=== PATIENT | female | born 1995 | race Caucasian/White ===

== ENCOUNTER 2018-01-06 13:21 | Emergency (ER) | payer BC ==
[2018-01-06 13:28] VITALS: BP 106/94
[2018-01-06] MEDS ORDERED: PROPARACAINE 0.5% 15 ML OPHT DROP ONE (13:33)
[2018-01-06] MEDS ORDERED: FLUORESCEIN SOD/BENOXINATE HCL 20 DROPS/ML OPHT.BTL ONE (13:33)
--- NOTE | 2018-01-06 13:50 | EDPHY ---
H & P Time Seen by Provider: 01/06/18 13:33 HPI/ROS: CHIEF COMPLAINT: Left eye injury HISTORY OF PRESENT ILLNESS: Patient had her left eye injured yesterday when her dog ran by with a stick in his mouth, complains of pain in the left eye but no change in her vision. REVIEW OF SYSTEMS: No fever or eye discharge PAST MEDICAL HISTORY: Negative Social history: Tobacco smoker General Appearance: Alert, no distress. Visual acuity: noted from nursing notes. 20/20 left, 20/20 right, 20/20 bilateral Lids and Lashes: No edema, no stye, no erythema. Conjunctivae: Not injected, no exudate. Sclera: Left lateral subconjunctival hemorrhage. Pupils: Equal and round, normally reactive. Corneas: Left examined with fluoroscein, inferior and lateral uptake, 3 mm in an inverted horseshoe shaped seen with slitlamp.Negative Bernardo test with fluoroscein. No foreign body on surface of cornea. Anterior chamber: normal, no hyphema or hypopyon. External: No proptosis, no periorbital swelling or redness or tenderness. Extraocular motion intact. Emergency Department course/MDM: Left eye corneal abrasion without evidence of ulcer or globe perforation. Left eye subconjunctival hemorrhage. Tobramycin eyedrops, does not wear contact lenses, ophthalmology follow-up. Smoking Status: Heavy smoker Constitutional: Initial Vital Signs Temperature (C) 36.8 C 01/06/18 13:26 Heart Rate 93 01/06/18 13:26 Respiratory Rate 18 01/06/18 13:26 Blood Pressure 106/94 H 01/06/18 13:26 O2 Sat (%) 96 01/06/18 13:26 O2 Delivery Mode Room Air Allergies/Adverse Reactions: No Known Allergies Allergy (Unverified 01/06/18 13:25) Home Medications: Medication Instructions Recorded Tobramycin 0.3% [Tobrex 0.3% opht 1 - 2 drops LEFTEYE Q4 5 Days #1 01/06/18 drops (*)] opht.btl MDM/Departure - Depart Disposition: Home, Routine, Self-Care Clinical Impression: Corneal abrasion, left Qualifiers: Encounter type: initial encounter Qualified Code(s): S05.02XA - Injury of conjunctiva and corneal abrasion without foreign body, left eye, initial encounter Subconjunctival hemorrhage Qualifiers: Laterality: left Qualified Code(s): H11.32 - Conjunctival hemorrhage, left eye Condition: Good Instructions: Corneal Abrasion (ED), Subconjunctival Hemorrhage (ED) Additional Instructions: Follow-up eye doctor 1-2 days for recheck. Return immediately for worsening eye pain or any decrease in vision. Prescriptions: Tobramycin 0.3% [Tobrex 0.3% opht drops (*)] 1 - 2 drops LEFTEYE Q4 5 Days #1 opht.btl Referrals: Kayy Quinn MD [Medical Doctor] - 1-2 days without fail
[2018-01-06] MEDS ORDERED: PROPARACAINE 0.5% 15 ML OPHT DROP LEFTEYE ONE (14:08)
[2018-01-06] MEDS ORDERED: FLUORESCEIN SODIUM 1 MG STRIP OP ONE (14:08)
== END 2018-01-06 14:00 | disposition home or self-care (01) ==
DX: S05.02XA Injury of conjunctiva and corneal abrasion without foreign body, left eye, initial encounter (principal); H11.32 Conjunctival hemorrhage, left eye; F17.200 Nicotine dependence, unspecified, uncomplicated; W54.1XXA Struck by dog, initial encounter